=== PATIENT | female | born 1995 | race Caucasian/White ===

== ENCOUNTER 2016-07-09 00:33 | Emergency (ER) | payer OTHER ==
[2016-07-09 01:30] LABS: MEAN CORPUSCULAR HEMOGLOBIN 31.5 pg (27.0-33.0); MEAN CORPUSCULAR HGB CONC 35.5 g/dl (32.0-36.5); MEAN CORPUSCULAR VOLUME 88.7 fl (80.0-96.0); RED CELL DISTRIBUTION WIDTH 11.8 % (11.5-14.5); WHITE BLOOD COUNT 7.2 K/mm3 (4.0-10.0)
--- NOTE | 2016-07-09 01:50 | REPUSA ---
CLINICAL HISTORY: Cramps. TECHNIQUE: Transabdominal and endovaginal ultrasound of the pelvis was performed. FINDINGS: A pole is identified with crown-rump length of 0.4 cm, which corresponds to a gestational age o f 6 weeks and 4 days. A yolk sac is noted. heart motion is demonstrated, with a rate of 61 beats per minute. [place]ROE is estimated at 02/26/17. Both ovaries are identified. Right ovarian cyst is seen There is no adnexal mass or pelvic fluid col lection. IMPRESSION: Single live IUP dated 6 w 4 d.
[2016-07-09 02:02] LABS: ANION GAP 10 MEQ/L (8-16); BLOOD UREA NITROGEN 8 MG/DL (7-18); CALCIUM LEVEL 8.7 MG/DL (8.5-10.1); CARBON DIOXIDE LEVEL 25 MEQ/L (21-32); CHLORIDE LEVEL 105 MEQ/L (98-107); CREATININE FOR GFR 0.42 MG/DL (0.55-1.02); GLOMERULAR FILTRATION RATE > 60.0 (>60); GLUCOSE, FASTING 90 MG/DL (70-105); HCG, SERUM QUANTITATIVE 4344 MIU/ML; POTASSIUM SERUM 4.1 MEQ/L (3.5-5.1); SODIUM LEVEL 140 MEQ/L (136-145)
--- NOTE | 2016-07-09 02:27 | EDDOCDS ---
Physician Documentation [facility] Name: Moy Berrios Age: 21 yrs Sex: Female : 1995 Arrival Date: 07/09/2016 Time: 00:33 Bed I4 / M4 Private MD: Disposition: 07/09/16 02:20 Discharged to Home/Self Care. Impression: related conditions, unspecified, first trimester, Abdominal and pelvic pain. - Condition is Stable. - Discharge Instructions: First Trimester of , Pelvic Pain, Female. - Medication Reconciliation, Local Pharmacy Hours form. - Follow up: Private Physician; When: Call to arrange an appointment; Reason: Recheck today's complaints, Continuance of care. - Problem is new. - Symptoms are unchanged. Historical: - Allergies: Bees; Ceclor; - Home Meds: 1. none - PMHx: Anxiety Disorder; Asthma; Depression; IBS; - PSHx: Endoscopy, Upper; Tonsillectomy; stomach surgery; - Social history: Smoking status: Patient uses tobacco products, heavy tobacco smoker. No barriers to communication noted, The patient speaks fluent Mohawk, Speaks appropriately for age. - Family history: Not pertinent. - : The pt / caregiver states he / she is not on anticoagulants. Home medication list is obtained from the patient. - Exposure Risk Screening:: None identified. 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 5 in. (165.10 cm) (R); Pain 1/10; 02:23 BP 121 / 71; Pulse 71; Resp 16; Temp 98.1; Pulse Ox 100% on R/A; ld5 00:38 Body Mass Index 20.80 (56.70 kg, 165.10 cm) [facility] MDM: 00:40 UCG by Nursing ordered. mo1 00:40 UA Ordered. EDMS 00:40 Urine Culture Ordered. EDMS 00:59 Undress patient appropriately for examination ordered. mo1 00:59 Complete Blood Count Ordered. EDMS 00:59 Hcg, Serum Quantitative Ordered. EDMS 00:59 Type & Screen Ordered. EDMS 00:59 BMP Ordered. EDMS 00:59 GC & Chlamydia Amplification Ordered. EDMS 01:00 Wet Prep Ordered. EDMS 01:00 US 1st trimester Ordered. EDMS 01:10 Financial registration complete. hs2 01:36 Complete Blood Count Reviewed. mo1 01:37 UA Reviewed. mo1 01:52 US 1st trimester Reviewed. mo1 02:11 Wet Prep Reviewed. mo1 02:12 Type & Screen Reviewed. mo1 02:12 Hcg, Serum Quantitative Reviewed. mo1 02:12 BMP Reviewed. mo1 Point of Care Testing: Urine : 00:53 hCG Reading: Positive; Control Reading: Positive; ka4 Ranges: Signatures: Dispatcher [employer] Pao Hare,RN RN ld5 Anshu Rodriguez PA PA mo1 Karsten Aranda,BERTHA RN Beckie Hudson, Reg Reg hs2 MTDD
--- NOTE | 2016-07-09 02:27 | EDDOCDS ---
Nurse's Notes [facility] Name: Moy Berrios Age: 21 yrs Sex: Female : 1995 Arrival Date: 07/09/2016 Time: 00:33 Bed I4 / M4 Private MD: Diagnosis: related conditions, unspecified, first trimester;Abdominal and pelvic pain Presentation: 07/09 00:36 Presenting complaint: Patient states: Patient reports that she took two tests jmb after Cal and since then she has been having some anxiety, panic attacks. Patient reports that she just needs to know everything is ok. Risk factors: the patient reports no vaginal bleeding. Adult Sepsis Screening: The patient does not have new or worsening altered mentation. Patient's respiratory rate is less than 22. Systolic blood pressure is greater than 100. Patient has a qSOFA score of 0- Negative Sepsis Screen. Suicide/Homicide risk assessment- the patient denies having any suicidal and/or homicidal ideations and does not present with any other emotional, behavioral or mental health complaints. Status: Patient is not a guest service supervisor or dependent. Transition of care: patient was not received from another setting of care. 00:36 Acuity: BHARATHI Level 4 b 00:36 Method Of Arrival: Walkin/Carried/Asstd [facility] Triage Assessment: 00:38 General: Appears in no apparent distress, Behavior is appropriate for age, cooperative. [facility] Pain: Location: abdomen Pain currently is 1 out of 10 on a pain scale. HIV screening NA for this visit Offered previously. Neurological: Level of Consciousness is awake, alert, obeys commands, Oriented to person, place, time, Speech is normal, Facial symmetry appears normal, Facial symmetry: tongue is midline. Respiratory: Airway is patent Respiratory effort is even, unlabored, Respiratory pattern is regular, symmetrical. GI: No deficits noted. Derm: Skin is pink, warm & dry. Musculoskeletal: Range of motion intact in all extremities. 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 none - PMHx: Anxiety Disorder; Asthma; Depression; IBS; - PSHx: Endoscopy, Upper; Tonsillectomy; stomach surgery; - Social history: Smoking status: Patient uses tobacco products, heavy tobacco smoker. No barriers to communication noted, The patient speaks fluent Belizean, Speaks appropriately for age. - Family history: Not pertinent. - : The pt / caregiver states he / she is not on anticoagulants. Home medication list is obtained from the patient. - Exposure Risk Screening:: None identified. Screenin:53 Screening information is obtained from the patient. Fall risk: No risks identified. ka4 Assistance ADL's: requires no assistance with activities of daily living. Abuse/DV Screen: The patient / caregiver reports he/she is: not in a situation that causes fear, pain or injury. Nutritional screening: No deficits noted. Advance Directives: There is no active DNR order. home support is adequate. Assessment: 01:00 General: Appears in no apparent distress, Behavior is anxious, cooperative. Pain: ld5 Location: right lower quadrant and left lower quadrant Pain currently is 1 out of 10 on a pain scale. Neurological: Level of Consciousness is awake, obeys commands. Respiratory: Airway is patent Respiratory effort is even, unlabored. GI: Abdomen is non- distended Bowel sounds present X 4 quads. Abd is soft and non tender X 4 quads. : Denies vaginal bleeding. 01:47 General: Appears in no apparent distress, comfortable, Behavior is anxious, ka4 cooperative. Respiratory: Airway is patent Respiratory effort is even, unlabored, Respiratory pattern is regular, symmetrical. Derm: Skin is pink, warm & dry. 02:23 General: Appears in no apparent distress, Behavior is cooperative. Pain: Denies pain. ld5 Neurological: Level of Consciousness is awake, obeys commands. Respiratory: Airway is patent Respiratory effort is even, unlabored. Vital Signs: 00:38 BP 125 / 86; Pulse 79; Resp 18; Temp 98.8(O); Pulse Ox 98% on R/A; Weight 56.7 kg (R); [facility] Height 5 ft. 5 in. (165.10 cm) (R); Pain 07/18; 02:23 BP 121 / 71; Pulse 71; Resp 16; Temp 98.1; Pulse Ox 100% on R/A; ld5 00:38 Body Mass Index 20.80 (56.70 kg, 165.10 cm) [facility] Vitals: 00:38 Log In Time: July 09, 2016 at 00:38. [facility] ED Course: 00:34 Patient visited by Altagracia Pollock. gjb 00:34 Patient moved to Waiting gjb 00:37 Triage Initiated jmb 00:39 Anshu Rodriguez PA is PHCP. mo1 00:39 Zaki Licona DO is Attending Physician. mo1 00:41 Patient moved to I4 / M4 jmb 00:53 Patient visited by Marija Medrano LPN. ka4 00:53 The patient / caregiver is instructed regarding the plan of care and ED course. ka4 00:53 Urine Culture Sent. ka4 00:53 UA Sent. ka4 01:00 Patient visited by Anshu Rodriguez PA. mo1 01:46 Wet Prep Sent. ka4 01:46 GC & Chlamydia Amplification Sent. ka4 01:48 Patient visited by Marija Medrano LPN. ka4 01:48 Assist provider with pelvic exam: Set up pelvic tray. Specimens sent to lab. Performed ka4 by Anshu ZELAYA Patient tolerated well. 01:50 US 1st trimester Returned. EDMS 02:23 No IV's were initiated during this patient's visit. ld5 02:25 Patient visited by Pao Deras RN. ld5 Point of Care Testing: Urine : 00:53 hCG Reading: Positive; Control Reading: Positive; ka4 Ranges: Order Results: Lab Order: UA; SPEC'M 07/09/16 00:51 Test: APPEARANCE, URINE; Value: CLEAR; Range: CLEAR; Status: F Test: COLOR, URINE; Value: YELLOW; Range: YELLOW; Status: F Test: PH,URINE; Value: 6.0; Range: 5.0-9.0; Units: UNITS; Status: F Test: SPECIFIC GRAVITY URINE AUTO; Value: 1.020; Range: 1.002-1.035; Status: F Test: PROTEIN, URINE AUTO; Value: NEGATIVE; Range: NEGATIVE; Units: mg/dL; Status: F Test: GLUCOSE, URINE (UA) AUTO; Value: NEGATIVE; Range: NEGATIVE; Units: mg/dL; Status: F Test: KETONE, URINE AUTO; Value: 1+; Range: NEGATIVE; Abnormal: Above high normal; Units: mg/dL; Status: F Test: UROBILINOGEN, URINE AUTO; Value: 0.2; Range: 0.0-2.0; Units: mg/dL; Status: F Test: BILIRUBIN, URINE AUTO; Value: NEGATIVE; Range: NEGATIVE; Status: F Test: NITRITE, URINE AUTO; Value: NEGATIVE; Range: NEGATIVE; Status: F Test: LEUKOCYTE ESTERASE, URINE AUTO; Value: NEGATIVE; Range: NEGATIVE; Status: F Test: BLOOD, URINE BLOOD; Value: NEGATIVE; Range: NEGATIVE; Status: F Test: WBC, URINE AUTO; Value: 1; Range: 0-3; Units: /HPF; Status: F Test: RBC, URINE AUTO; Value: 1; Range: 0-3; Units: /HPF; Status: F Test: BACTERIA, URINE AUTO; Value: 1+; Range: NEGATIVE; Abnormal: Above high normal; Status: F Test: SQUAMOUS EPITHELIAL CELL UR AU; Value: 1; Range: 0-6; Units: /HPF; Status: F Test: MUCUS, URINE; Value: SMALL; Range: NEGATIVE; Status: F Test: HYALINE CAST, URINE AUTO; Value: 0; Range: 0-1; Units: /LPF; Status: F Lab Order: Complete Blood Count; SPEC'M 07/09/16 01:12 Test: WHITE BLOOD COUNT; Value: 7.2; Range: 4.0-10.0; Units: K/mm3; Status: F Test: RED BLOOD COUNT; Value: 4.15; Range: 4.00-5.40; Units: M/mm3; Status: F Test: HEMOGLOBIN; Value: 13.1; Range: 12.0-16.0; Units: g/dl; Status: F Test: HEMATOCRIT; Value: 36.8; Range: 36.0-47.0; Units: %; Status: F Test: MEAN CORPUSCULAR VOLUME; Value: 88.7; Range: 80.0-96.0; Units: fl; Status: F Test: MEAN CORPUSCULAR HEMOGLOBIN; Value: 31.5; Range: 27.0-33.0; Units: pg; Status: F Test: MEAN CORPUSCULAR HGB CONC; Value: 35.5; Range: 32.0-36.5; Units: g/dl; Status: F Test: RED CELL DISTRIBUTION WIDTH; Value: 11.8; Range: 11.5-14.5; Units: %; Status: F Test: PLATELET COUNT, AUTOMATED; Value: 207; Range: 150-450; Units: k/mm3; Status: F Lab Order: Hcg, Serum Quantitative; SPEC'07/09/16 01:12 Test: HCG, SERUM QUANTITATIVE; Value: 4344; Units: MIU/ML; Status: F Test Note: ; GESTATIONAL AGE APPROXIMATE HCG RANGE (MIU/ML) 0.2-1 WEEK 5-50 1-2 WEEKS 50-500 2-3 WEEKS 100-5,000 3-4 WEEKS 500-10,000 4-5 WEEKS 1,000-50,000 5-6 WEEKS 10,000-100,000 6-8 WEEKS 15,000-200,000 2-3 MONTHS 10,000-100,000 NON FEMALES LESS THAN 3.0 Patient samples may contain human heterophilic antibodies that could react with immunoassays to give falsely elevated or depressed results. This assay has been designed to minimize interference from heterophilic antibodies. Elevated hCG levels have also been associated with trophoblastic disease and nontrophoblastic neoplasms. The possibility of having these diseases should be considered before a diagnosis of is made. This test is not intended for use as a surrogate marker for aiding in the diagnosis or monitoring the treatment of cancer patients. [employer] methodology. Lab Order: Type & Screen; 07/09/16 01:12 Test: BLOOD TYPE; Value: A POS; Status: F Test: AB SCREEN (INDIRECT CHAR)GEL; Value: NEGATIVE; Status: F Lab Order: BMP; [facility] 07/09/16 01:12 Test: GLUCOSE, FASTING; Value: 90; Range: 70-105; Units: MG/DL; Status: F Test: BLOOD UREA NITROGEN; Value: 8; Range: 7-18; Units: MG/DL; Status: F Test: CREATININE FOR GFR; Value: 0.42; Range: 0.55-1.02; Abnormal: Below low normal; Units: MG/DL; Status: F Test: GLOMERULAR FILTRATION RATE; Value: > 60.0; Range: >60; Status: F Test: SODIUM LEVEL; Value: 140; Range: 136-145; Units: MEQ/L; Status: F Test: POTASSIUM SERUM; Value: 4.1; Range: 3.5-5.1; Units: MEQ/L; Status: F Test: CHLORIDE LEVEL; Value: 105; Range: 98-107; Units: MEQ/L; Status: F Test: CARBON DIOXIDE LEVEL; Value: 25; Range: 21-32; Units: MEQ/L; Status: F Test: ANION GAP; Value: 10; Range: 8-16; Units: MEQ/L; Status: F Test: CALCIUM LEVEL; Value: 8.7; Range: 8.5-10.1; Units: MG/DL; Status: F Test Note: ; Units are mL/min/1.73 m2 Chronic Kidney Disease Staging per NKF: Stage I & II GFR >=60 Normal to Mildly Decreased Stage III GFR 30-59 Moderately Decreased Stage IV GFR 15-29 Severely Decreased Stage V GFR <15 Very Little GFR Left ESRD GFR <15 on LOCKSTITCH CUP SETTER Lab Order: Wet Prep; SPEC'M 07/09/16 01:12 Test: WET PREP; Value: WET PREP RESULT; Status: F Test: WET PREP; Value: MANY EPITHELIAL CELLS PRESENT; Status: F Test: WET PREP; Value: MANY LONG RODS PRESENT; Status: F Test: WET PREP; Value: MODERATE WBC; Status: F Radiology Order: US 1st trimester Test: US 1st trimester REASON FOR EXAMINATION: 5wks preg, pelvic pain; ; CLINICAL HISTORY: Cramps.; TECHNIQUE: Transabdominal and endovaginal ultrasound of the pelvis was performed.; FINDINGS:; A pole is identified with crown-rump length of 0.4 cm, which corresponds to a gestational age o; f 6 weeks and 4 days. A yolk sac is noted.; heart motion is demonstrated, with a rate of 61 beats per minute.; [place] is estimated at 02/26/17.; Both ovaries are identified. Right ovarian cyst is seen There is no adnexal mass or pelvic fluid col; lection.; IMPRESSION:; Single live IUP dated 6 w 4 d.; ; Outcome: 02:20 Discharge ordered by Provider. mo1 02:23 Discharge Assessment: Patient awake, alert and oriented x 3. No cognitive and/or ld5 functional deficits noted. Patient verbalized understanding of disposition instructions. patient administered narcotics - no. The following High Risk Discharge criteria are identified: None. Discharged to home ambulatory, with significant other. Condition: stable. Discharge instructions given to patient, significant other, Instructed on discharge instructions, follow up and referral plans. Demonstrated understanding of instructions, Pt was receptive of discharge instructions/ teaching. Ultrasound Study completed. Property :Personal belongings accompany Pt. 02:25 Patient left the ED. ld5 Signatures: Dispatcher [employer] Pao Hare RN RN ld5 Anshu Rodriguez PA PA mo1 Becker, Joshua, RN RN Marija Finley LPN LPN ka4 Altagracia Pollock MTDPerla
--- NOTE | 2016-07-11 03:26 | EDDOCDS ---
Physician Documentation [facility] Name: Moy Berrios Age: 21 yrs Sex: Female : 1995 Arrival Date: 07/09/2016 Time: 00:33 Bed I4 / M4 Private MD: Disposition: 07/09/16 02:20 Discharged to Home/Self Care. Impression: related conditions, unspecified, first trimester, Abdominal and pelvic pain. - Condition is Stable. - Discharge Instructions: First Trimester of , Pelvic Pain, Female. - Medication Reconciliation, Local Pharmacy Hours form. - Follow up: Private Physician; When: Call to arrange an appointment; Reason: Recheck today's complaints, Continuance of care. - Problem is new. - Symptoms are unchanged. Historical: - Allergies: Bees; Ceclor; - Home Meds: 1. none - PMHx: Anxiety Disorder; Asthma; Depression; IBS; - PSHx: Endoscopy, Upper; Tonsillectomy; stomach surgery; - Social history: Smoking status: Patient uses tobacco products, heavy tobacco smoker. No barriers to communication noted, The patient speaks fluent Italian, Speaks appropriately for age. - Family history: Not pertinent. - : The pt / caregiver states he / she is not on anticoagulants. Home medication list is obtained from the patient. - Exposure Risk Screening:: None identified. 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 5 in. (165.10 cm) (R); Pain 1/10; 02:23 BP 121 / 71; Pulse 71; Resp 16; Temp 98.1; Pulse Ox 100% on R/A; ld5 00:38 Body Mass Index 20.80 (56.70 kg, 165.10 cm) [facility] MDM: 00:40 UCG by Nursing ordered. mo1 00:40 UA Ordered. EDMS 00:40 Urine Culture Ordered. EDMS 00:59 Undress patient appropriately for examination ordered. mo1 00:59 Complete Blood Count Ordered. EDMS 00:59 Hcg, Serum Quantitative Ordered. EDMS 00:59 Type & Screen Ordered. EDMS 00:59 BMP Ordered. EDMS 00:59 GC & Chlamydia Amplification Ordered. EDMS 01:00 Wet Prep Ordered. EDMS 01:00 US 1st trimester Ordered. EDMS 01:10 Financial registration complete. hs2 01:36 Complete Blood Count Reviewed. mo1 01:37 UA Reviewed. mo1 01:52 US 1st trimester Reviewed. mo1 02:11 Wet Prep Reviewed. mo1 02:12 Type & Screen Reviewed. mo1 02:12 Hcg, Serum Quantitative Reviewed. mo1 02:12 BMP Reviewed. mo1 02:32 [facility] Payment Agreement was scanned into [employer] and attached to record. hs2 08:52 T-Sheet-- Draft Copy was scanned into [employer] and attached to record. [facility] Point of Care Testing: Urine : 00:53 hCG Reading: Positive; Control Reading: Positive; ka4 Ranges: Signatures: Dispatcher [employer] Pao Hare RN RN ld5 Anshu Rodriguez PA PA mo1 Karsten Aranda RN RN jmb Stanton, Hillary, Reg Reg hs2 Emani Douglas [facility] The chart was reviewed and I authenticate all verbal orders and agree with the evaluation and treatment provided.Attachments: 02:32 [facility] Payment Agreement hs2 08:52 T-Sheet-- Draft Copy [facility] Chart Complete MTDD
--- NOTE | 2016-07-11 03:26 | EDDOCDS ---
Nurse's Notes [facility] Name: Moy Berrios Age: 21 yrs Sex: Female : 1995 Arrival Date: 07/09/2016 Time: 00:33 Bed I4 / M4 Private MD: Diagnosis: related conditions, unspecified, first trimester;Abdominal and pelvic pain Presentation: 07/09 00:36 Presenting complaint: Patient states: Patient reports that she took two tests jmb after Cal and since then she has been having some anxiety, panic attacks. Patient reports that she just needs to know everything is ok. Risk factors: the patient reports no vaginal bleeding. Adult Sepsis Screening: The patient does not have new or worsening altered mentation. Patient's respiratory rate is less than 22. Systolic blood pressure is greater than 100. Patient has a qSOFA score of 0- Negative Sepsis Screen. Suicide/Homicide risk assessment- the patient denies having any suicidal and/or homicidal ideations and does not present with any other emotional, behavioral or mental health complaints. Status: Patient is not a customer service representative teacher or dependent. Transition of care: patient was not received from another setting of care. 00:36 Acuity: BHARATHI Level 4 b 00:36 Method Of Arrival: Walkin/Carried/Asstd [facility] Triage Assessment: 00:38 General: Appears in no apparent distress, Behavior is appropriate for age, cooperative. [facility] Pain: Location: abdomen Pain currently is 1 out of 10 on a pain scale. HIV screening NA for this visit Offered previously. Neurological: Level of Consciousness is awake, alert, obeys commands, Oriented to person, place, time, Speech is normal, Facial symmetry appears normal, Facial symmetry: tongue is midline. Respiratory: Airway is patent Respiratory effort is even, unlabored, Respiratory pattern is regular, symmetrical. GI: No deficits noted. Derm: Skin is pink, warm & dry. Musculoskeletal: Range of motion intact in all extremities. 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 none - PMHx: Anxiety Disorder; Asthma; Depression; IBS; - PSHx: Endoscopy, Upper; Tonsillectomy; stomach surgery; - Social history: Smoking status: Patient uses tobacco products, heavy tobacco smoker. No barriers to communication noted, The patient speaks fluent Kittitian, Speaks appropriately for age. - Family history: Not pertinent. - : The pt / caregiver states he / she is not on anticoagulants. Home medication list is obtained from the patient. - Exposure Risk Screening:: None identified. Screenin:53 Screening information is obtained from the patient. Fall risk: No risks identified. ka4 Assistance ADL's: requires no assistance with activities of daily living. Abuse/DV Screen: The patient / caregiver reports he/she is: not in a situation that causes fear, pain or injury. Nutritional screening: No deficits noted. Advance Directives: There is no active DNR order. home support is adequate. Assessment: 01:00 General: Appears in no apparent distress, Behavior is anxious, cooperative. Pain: ld5 Location: right lower quadrant and left lower quadrant Pain currently is 1 out of 10 on a pain scale. Neurological: Level of Consciousness is awake, obeys commands. Respiratory: Airway is patent Respiratory effort is even, unlabored. GI: Abdomen is non- distended Bowel sounds present X 4 quads. Abd is soft and non tender X 4 quads. : Denies vaginal bleeding. 01:47 General: Appears in no apparent distress, comfortable, Behavior is anxious, ka4 cooperative. Respiratory: Airway is patent Respiratory effort is even, unlabored, Respiratory pattern is regular, symmetrical. Derm: Skin is pink, warm & dry. 02:23 General: Appears in no apparent distress, Behavior is cooperative. Pain: Denies pain. ld5 Neurological: Level of Consciousness is awake, obeys commands. Respiratory: Airway is patent Respiratory effort is even, unlabored. Vital Signs: 00:38 BP 125 / 86; Pulse 79; Resp 18; Temp 98.8(O); Pulse Ox 98% on R/A; Weight 56.7 kg (R); [facility] Height 5 ft. 5 in. (165.10 cm) (R); Pain 07/18; 02:23 BP 121 / 71; Pulse 71; Resp 16; Temp 98.1; Pulse Ox 100% on R/A; ld5 00:38 Body Mass Index 20.80 (56.70 kg, 165.10 cm) [facility] Vitals: 00:38 Log In Time: July 09, 2016 at 00:38. [facility] ED Course: 00:34 Patient visited by Altagracia Pollock. gjb 00:34 Patient moved to Waiting gjb 00:37 Triage Initiated jmb 00:39 Anshu Rodriguez PA is PHCP. mo1 00:39 Zaki Licona DO is Attending Physician. mo1 00:41 Patient moved to I4 / M4 jmb 00:53 Patient visited by Marija Medrano LPN. ka4 00:53 The patient / caregiver is instructed regarding the plan of care and ED course. ka4 00:53 Urine Culture Sent. ka4 00:53 UA Sent. ka4 01:00 Patient visited by Anshu Rodriguez PA. mo1 01:46 Wet Prep Sent. ka4 01:46 GC & Chlamydia Amplification Sent. ka4 01:48 Patient visited by Marija Medrano LPN. ka4 01:48 Assist provider with pelvic exam: Set up pelvic tray. Specimens sent to lab. Performed ka4 by Anshu ZELAYA Patient tolerated well. 01:50 US 1st trimester Returned. EDMS 02:23 No IV's were initiated during this patient's visit. ld5 02:25 Patient visited by Pao Deras RN. ld5 02:32 [facility] Payment Agreement was scanned into [employer] and attached to record. hs2 02:36 Patient name changed from Moy\S\\S\Angilello\S\ to Moy\S\ \S\Angilello. EDMS 08:52 T-Sheet-- Draft Copy was scanned into [employer] and attached to record. [facility] Point of Care Testing: Urine : 00:53 hCG Reading: Positive; Control Reading: Positive; ka4 Ranges: Order Results: Lab Order: UA; SPEC'M 07/09/16 00:51 Test: APPEARANCE, URINE; Value: CLEAR; Range: CLEAR; Status: F Test: COLOR, URINE; Value: YELLOW; Range: YELLOW; Status: F Test: PH,URINE; Value: 6.0; Range: 5.0-9.0; Units: UNITS; Status: F Test: SPECIFIC GRAVITY URINE AUTO; Value: 1.020; Range: 1.002-1.035; Status: F Test: PROTEIN, URINE AUTO; Value: NEGATIVE; Range: NEGATIVE; Units: mg/dL; Status: F Test: GLUCOSE, URINE (UA) AUTO; Value: NEGATIVE; Range: NEGATIVE; Units: mg/dL; Status: F Test: KETONE, URINE AUTO; Value: 1+; Range: NEGATIVE; Abnormal: Above high normal; Units: mg/dL; Status: F Test: UROBILINOGEN, URINE AUTO; Value: 0.2; Range: 0.0-2.0; Units: mg/dL; Status: F Test: BILIRUBIN, URINE AUTO; Value: NEGATIVE; Range: NEGATIVE; Status: F Test: NITRITE, URINE AUTO; Value: NEGATIVE; Range: NEGATIVE; Status: F Test: LEUKOCYTE ESTERASE, URINE AUTO; Value: NEGATIVE; Range: NEGATIVE; Status: F Test: BLOOD, URINE BLOOD; Value: NEGATIVE; Range: NEGATIVE; Status: F Test: WBC, URINE AUTO; Value: 1; Range: 0-3; Units: /HPF; Status: F Test: RBC, URINE AUTO; Value: 1; Range: 0-3; Units: /HPF; Status: F Test: BACTERIA, URINE AUTO; Value: 1+; Range: NEGATIVE; Abnormal: Above high normal; Status: F Test: SQUAMOUS EPITHELIAL CELL UR AU; Value: 1; Range: 0-6; Units: /HPF; Status: F Test: MUCUS, URINE; Value: SMALL; Range: NEGATIVE; Status: F Test: HYALINE CAST, URINE AUTO; Value: 0; Range: 0-1; Units: /LPF; Status: F Lab Order: Urine Culture; SPEC'M 07/09/16 00:51 Test: URINE CULTURE; Value: URINE CULTURE RESULT NO GROWTH; Status: F Lab Order: Complete Blood Count; SPEC'M 07/09/16 01:12 Test: WHITE BLOOD COUNT; Value: 7.2; Range: 4.0-10.0; Units: K/mm3; Status: F Test: RED BLOOD COUNT; Value: 4.15; Range: 4.00-5.40; Units: M/mm3; Status: F Test: HEMOGLOBIN; Value: 13.1; Range: 12.0-16.0; Units: g/dl; Status: F Test: HEMATOCRIT; Value: 36.8; Range: 36.0-47.0; Units: %; Status: F Test: MEAN CORPUSCULAR VOLUME; Value: 88.7; Range: 80.0-96.0; Units: fl; Status: F Test: MEAN CORPUSCULAR HEMOGLOBIN; Value: 31.5; Range: 27.0-33.0; Units: pg; Status: F Test: MEAN CORPUSCULAR HGB CONC; Value: 35.5; Range: 32.0-36.5; Units: g/dl; Status: F Test: RED CELL DISTRIBUTION WIDTH; Value: 11.8; Range: 11.5-14.5; Units: %; Status: F Test: PLATELET COUNT, AUTOMATED; Value: 207; Range: 150-450; Units: k/mm3; Status: F Lab Order: Hcg, Serum Quantitative; SPEC'M 07/09/16 01:12 Test: HCG, SERUM QUANTITATIVE; Value: 4344; Units: MIU/ML; Status: F Test Note: ; GESTATIONAL AGE APPROXIMATE HCG RANGE (MIU/ML) 0.2-1 WEEK 5-50 1-2 WEEKS 50-500 2-3 WEEKS 100-5,000 3-4 WEEKS 500-10,000 4-5 WEEKS 1,000-50,000 5-6 WEEKS 10,000-100,000 6-8 WEEKS 15,000-200,000 2-3 MONTHS 10,000-100,000 NON FEMALES LESS THAN 3.0 Patient samples may contain human heterophilic antibodies that could react with immunoassays to give falsely elevated or depressed results. This assay has been designed to minimize interference from heterophilic antibodies. Elevated hCG levels have also been associated with trophoblastic disease and nontrophoblastic neoplasms. The possibility of having these diseases should be considered before a diagnosis of is made. This test is not intended for use as a surrogate marker for aiding in the diagnosis or monitoring the treatment of cancer patients. Siemens Pixability methodology. Lab Order: Type & Screen; SPEC'M 07/09/16 01:12 Test: BLOOD TYPE; Value: A POS; Status: F Test: AB SCREEN (INDIRECT CHAR)GEL; Value: NEGATIVE; Status: F Lab Order: BMP; SPEC'M 07/09/16 01:12 Test: GLUCOSE, FASTING; Value: 90; Range: 70-105; Units: MG/DL; Status: F Test: BLOOD UREA NITROGEN; Value: 8; Range: 7-18; Units: MG/DL; Status: F Test: CREATININE FOR GFR; Value: 0.42; Range: 0.55-1.02; Abnormal: Below low normal; Units: MG/DL; Status: F Test: GLOMERULAR FILTRATION RATE; Value: > 60.0; Range: >60; Status: F Test: SODIUM LEVEL; Value: 140; Range: 136-145; Units: MEQ/L; Status: F Test: POTASSIUM SERUM; Value: 4.1; Range: 3.5-5.1; Units: MEQ/L; Status: F Test: CHLORIDE LEVEL; Value: 105; Range: 98-107; Units: MEQ/L; Status: F Test: CARBON DIOXIDE LEVEL; Value: 25; Range: 21-32; Units: MEQ/L; Status: F Test: ANION GAP; Value: 10; Range: 8-16; Units: MEQ/L; Status: F Test: CALCIUM LEVEL; Value: 8.7; Range: 8.5-10.1; Units: MG/DL; Status: F Test Note: ; Units are mL/min/1.73 m2 Chronic Kidney Disease Staging per NKF: Stage I & II GFR >=60 Normal to Mildly Decreased Stage III GFR 30-59 Moderately Decreased Stage IV GFR 15-29 Severely Decreased Stage V GFR <15 Very Little GFR Left ESRD GFR <15 on WINDING LATHE OPERATOR Lab Order: GC & Chlamydia Amplification; SPEC'M 07/09/16 01:12 Test: CHLAMYDIA DNA AMPLIFICATION; Value: NEGATIVE; Range: NEGATIVE; Status: F Test: GC DNA AMPLIFICATION; Value: NEGATIVE; Range: NEGATIVE; Status: F Lab Order: Wet Prep; SPEC'M 07/09/16 01:12 Test: WET PREP; Value: WET PREP RESULT; Status: F Test: WET PREP; Value: MANY EPITHELIAL CELLS PRESENT; Status: F Test: WET PREP; Value: MANY LONG RODS PRESENT; Status: F Test: WET PREP; Value: MODERATE WBC; Status: F Radiology Order: US 1st trimester Test: US 1st trimester REASON FOR EXAMINATION: 5wks preg, pelvic pain; ; CLINICAL HISTORY: Cramps.; TECHNIQUE: Transabdominal and endovaginal ultrasound of the pelvis was performed.; FINDINGS:; A pole is identified with crown-rump length of 0.4 cm, which corresponds to a gestational age o; f 6 weeks and 4 days. A yolk sac is noted.; heart motion is demonstrated, with a rate of 61 beats per minute.; [place] is estimated at 02/26/17.; Both ovaries are identified. Right ovarian cyst is seen There is no adnexal mass or pelvic fluid col; lection.; IMPRESSION:; Single live IUP dated 6 w 4 d.; ; Outcome: 02:20 Discharge ordered by Provider. mo1 02:23 Discharge Assessment: Patient awake, alert and oriented x 3. No cognitive and/or ld5 functional deficits noted. Patient verbalized understanding of disposition instructions. patient administered narcotics - no. The following High Risk Discharge criteria are identified: None. Discharged to home ambulatory, with significant other. Condition: stable. Discharge instructions given to patient, significant other, Instructed on discharge instructions, follow up and referral plans. Demonstrated understanding of instructions, Pt was receptive of discharge instructions/ teaching. Ultrasound Study completed. Property :Personal belongings accompany Pt. 02:25 Patient left the ED. ld5 Signatures: Dispatcher [employer] EDPao Nunez,RN RN ld5 Anshu Rodriguez PA PA mo1 Karsten ArandaRN RN Marija Finley LPN LPN ka4 Beck, Gabriela gjb Stanton, Hillary, Reg Reg hs2 Misael Emanicorrie briggs Chart Complete MTDD
--- NOTE | 2016-07-11 03:26 | EDDOCDS ---
Physician Documentation [facility] Name: Moy Berrios Age: 21 yrs Sex: Female : 1995 Arrival Date: 07/09/2016 Time: 00:33 Bed I4 / M4 Private MD: Disposition: 07/09/16 02:20 Discharged to Home/Self Care. Impression: related conditions, unspecified, first trimester, Abdominal and pelvic pain. - Condition is Stable. - Discharge Instructions: First Trimester of , Pelvic Pain, Female. - Medication Reconciliation, Local Pharmacy Hours form. - Follow up: Private Physician; When: Call to arrange an appointment; Reason: Recheck today's complaints, Continuance of care. - Problem is new. - Symptoms are unchanged. Historical: - Allergies: Bees; Ceclor; - Home Meds: 1. none - PMHx: Anxiety Disorder; Asthma; Depression; IBS; - PSHx: Endoscopy, Upper; Tonsillectomy; stomach surgery; - Social history: Smoking status: Patient uses tobacco products, heavy tobacco smoker. No barriers to communication noted, The patient speaks fluent Urdu, Speaks appropriately for age. - Family history: Not pertinent. - : The pt / caregiver states he / she is not on anticoagulants. Home medication list is obtained from the patient. - Exposure Risk Screening:: None identified. 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 5 in. (165.10 cm) (R); Pain 1/10; 02:23 BP 121 / 71; Pulse 71; Resp 16; Temp 98.1; Pulse Ox 100% on R/A; ld5 00:38 Body Mass Index 20.80 (56.70 kg, 165.10 cm) [facility] MDM: 00:40 UCG by Nursing ordered. mo1 00:40 UA Ordered. EDMS 00:40 Urine Culture Ordered. EDMS 00:59 Undress patient appropriately for examination ordered. mo1 00:59 Complete Blood Count Ordered. EDMS 00:59 Hcg, Serum Quantitative Ordered. EDMS 00:59 Type & Screen Ordered. EDMS 00:59 BMP Ordered. EDMS 00:59 GC & Chlamydia Amplification Ordered. EDMS 01:00 Wet Prep Ordered. EDMS 01:00 US 1st trimester Ordered. EDMS 01:10 Financial registration complete. hs2 01:36 Complete Blood Count Reviewed. mo1 01:37 UA Reviewed. mo1 01:52 US 1st trimester Reviewed. mo1 02:11 Wet Prep Reviewed. mo1 02:12 Type & Screen Reviewed. mo1 02:12 Hcg, Serum Quantitative Reviewed. mo1 02:12 BMP Reviewed. mo1 02:32 [facility] [place] Agreement was scanned into [email or web address] and attached to record. hs2 08:52 T-Sheet-- Draft Copy was scanned into [email or web address] and attached to record. [facility] Point of Care Testing: Urine : 00:53 hCG Reading: Positive; Control Reading: Positive; ka4 Ranges: Signatures: Dispatcher [employer] Pao Hare RN RN ld5 Anshu Rodriguez PA PA mo1 Karsten Aranda RN RN jmb Stanton, Hillary, Reg Reg hs2 Emani Douglas [facility] The chart was reviewed and I authenticate all verbal orders and agree with the evaluation and treatment provided.Attachments: 02:32 [facility] Payment Agreement hs2 08:52 T-Sheet-- Draft Copy [facility] Chart Complete MTDD
--- NOTE | 2016-07-15 12:46 | EDDOCDS ---
Physician Documentation [facility] Name: Moy Berrios Age: 21 yrs Sex: Female : 1995 Arrival Date: 07/09/2016 Time: 00:33 Bed I4 / M4 Private MD: Disposition: 07/09/16 02:20 Discharged to Home/Self Care. Impression: related conditions, unspecified, first trimester, Abdominal and pelvic pain. - Condition is Stable. - Discharge Instructions: First Trimester of , Pelvic Pain, Female. - Medication Reconciliation, Local Pharmacy Hours form. - Follow up: Private Physician; When: Call to arrange an appointment; Reason: Recheck today's complaints, Continuance of care. - Problem is new. - Symptoms are unchanged. Historical: - Allergies: Bees; Ceclor; - Home Meds: 1. none - PMHx: Anxiety Disorder; Asthma; Depression; IBS; - PSHx: Endoscopy, Upper; Tonsillectomy; stomach surgery; - Social history: Smoking status: Patient uses tobacco products, heavy tobacco smoker. No barriers to communication noted, The patient speaks fluent Irish, Speaks appropriately for age. - Family history: Not pertinent. - : The pt / caregiver states he / she is not on anticoagulants. Home medication list is obtained from the patient. - Exposure Risk Screening:: None identified. 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 Vital Signs: 00:38 BP 125 / 86; Pulse 79; Resp 18; Temp 98.8(O); Pulse Ox 98% on R/A; Weight 56.7 kg / 125 jmb lbs (R); Height 5 ft. 5 in. (165.10 cm) (R); Pain 1/10; 02:23 BP 121 / 71; Pulse 71; Resp 16; Temp 98.1; Pulse Ox 100% on R/A; ld5 00:38 Body Mass Index 20.80 (56.70 kg, 165.10 cm) [facility] MDM: 00:40 UCG by Nursing ordered. mo1 00:40 UA Ordered. EDMS 00:40 Urine Culture Ordered. EDMS 00:59 Undress patient appropriately for examination ordered. mo1 00:59 Complete Blood Count Ordered. EDMS 00:59 Hcg, Serum Quantitative Ordered. EDMS 00:59 Type & Screen Ordered. EDMS 00:59 BMP Ordered. EDMS 00:59 GC & Chlamydia Amplification Ordered. EDMS 01:00 Wet Prep Ordered. EDMS 01:00 US 1st trimester Ordered. EDMS 01:10 Financial registration complete. hs2 01:36 Complete Blood Count Reviewed. mo1 01:37 UA Reviewed. mo1 01:52 US 1st trimester Reviewed. mo1 02:11 Wet Prep Reviewed. mo1 02:12 Type & Screen Reviewed. mo1 02:12 Hcg, Serum Quantitative Reviewed. mo1 02:12 BMP Reviewed. mo1 02:32 [facility] Payment Agreement was scanned into [employer] and attached to record. hs2 08:52 T-Sheet-- Draft Copy was scanned into [employer] and attached to record. [facility] Point of Care Testing: Urine : 00:53 hCG Reading: Positive; Control Reading: Positive; ka4 Ranges: Signatures: Dispatcher [employer] Pao Hare RN RN ld5 Anshu Rodriguez PA PA mo1 Karsten Aranda RN RN Beckie Hudson, Reg Reg hs2 Emani Douglas [facility] The chart was reviewed and I authenticate all verbal orders and agree with the evaluation and treatment provided.Attachments: 02:32 [facility] Payment Agreement hs2 Chart Complete MTDD
--- NOTE | 2016-07-15 12:46 | EDDOCDS ---
Physician Documentation [facility] Name: Moy Berrios Age: 21 yrs Sex: Female : 1995 Arrival Date: 07/09/2016 Time: 00:33 Bed I4 / M4 Private MD: Disposition: 07/09/16 02:20 Discharged to Home/Self Care. Impression: related conditions, unspecified, first trimester, Abdominal and pelvic pain. - Condition is Stable. - Discharge Instructions: First Trimester of , Pelvic Pain, Female. - Medication Reconciliation, Local Pharmacy Hours form. - Follow up: Private Physician; When: Call to arrange an appointment; Reason: Recheck today's complaints, Continuance of care. - Problem is new. - Symptoms are unchanged. Historical: - Allergies: Bees; Ceclor; - Home Meds: 1. none - PMHx: Anxiety Disorder; Asthma; Depression; IBS; - PSHx: Endoscopy, Upper; Tonsillectomy; stomach surgery; - Social history: Smoking status: Patient uses tobacco products, heavy tobacco smoker. No barriers to communication noted, The patient speaks fluent Syriac, Speaks appropriately for age. - Family history: Not pertinent. - : The pt / caregiver states he / she is not on anticoagulants. Home medication list is obtained from the patient. - Exposure Risk Screening:: None identified. 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 5 in. (165.10 cm) (R); Pain 1/10; 02:23 BP 121 / 71; Pulse 71; Resp 16; Temp 98.1; Pulse Ox 100% on R/A; ld5 00:38 Body Mass Index 20.80 (56.70 kg, 165.10 cm) [facility] MDM: 00:40 UCG by Nursing ordered. mo1 00:40 UA Ordered. EDMS 00:40 Urine Culture Ordered. EDMS 00:59 Undress patient appropriately for examination ordered. mo1 00:59 Complete Blood Count Ordered. EDMS 00:59 Hcg, Serum Quantitative Ordered. EDMS 00:59 Type & Screen Ordered. EDMS 00:59 BMP Ordered. EDMS 00:59 GC & Chlamydia Amplification Ordered. EDMS 01:00 Wet Prep Ordered. EDMS 01:00 US 1st trimester Ordered. EDMS 01:10 Financial registration complete. hs2 01:36 Complete Blood Count Reviewed. mo1 01:37 UA Reviewed. mo1 01:52 US 1st trimester Reviewed. mo1 02:11 Wet Prep Reviewed. mo1 02:12 Type & Screen Reviewed. mo1 02:12 Hcg, Serum Quantitative Reviewed. mo1 02:12 BMP Reviewed. mo1 02:32 [facility] Payment Agreement was scanned into [employer] and attached to record. hs2 08:52 T-Sheet-- Draft Copy was scanned into [employer] and attached to record. [facility] Point of Care Testing: Urine : 00:53 hCG Reading: Positive; Control Reading: Positive; ka4 Ranges: Signatures: Dispatcher [employer] Pao Hare RN RN ld5 Anshu Rodriguez PA PA mo1 Karsten Aranda RN RN Beckie Hudson, Reg Reg hs2 Emani [address] [facility] The chart was reviewed and I authenticate all verbal orders and agree with the evaluation and treatment provided.Attachments: 02:32 [facility] Payment Agreement hs2 Chart Complete MTDD
--- NOTE | 2016-07-15 12:47 | EDDOCDS ---
Nurse's Notes [facility] Name: Moy Berrios Age: 21 yrs Sex: Female : 1995 Arrival Date: 07/09/2016 Time: 00:33 Bed I4 / M4 Private MD: Diagnosis: related conditions, unspecified, first trimester;Abdominal and pelvic pain Presentation: 07/09 00:36 Presenting complaint: Patient states: Patient reports that she took two tests jmb after Cal and since then she has been having some anxiety, panic attacks. Patient reports that she just needs to know everything is ok. Risk factors: the patient reports no vaginal bleeding. Adult Sepsis Screening: The patient does not have new or worsening altered mentation. Patient's respiratory rate is less than 22. Systolic blood pressure is greater than 100. Patient has a qSOFA score of 0- Negative Sepsis Screen. Suicide/Homicide risk assessment- the patient denies having any suicidal and/or homicidal ideations and does not present with any other emotional, behavioral or mental health complaints. Status: Patient is not a atm servicer or dependent. Transition of care: patient was not received from another setting of care. 00:36 Acuity: BHARATHI Level 4 b 00:36 Method Of Arrival: Walkin/Carried/Asstd [facility] Triage Assessment: 00:38 General: Appears in no apparent distress, Behavior is appropriate for age, cooperative. [facility] Pain: Location: abdomen Pain currently is 1 out of 10 on a pain scale. HIV screening NA for this visit Offered previously. Neurological: Level of Consciousness is awake, alert, obeys commands, Oriented to person, place, time, Speech is normal, Facial symmetry appears normal, Facial symmetry: tongue is midline. Respiratory: Airway is patent Respiratory effort is even, unlabored, Respiratory pattern is regular, symmetrical. GI: No deficits noted. Derm: Skin is pink, warm & dry. Musculoskeletal: Range of motion intact in all extremities. 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 none - PMHx: Anxiety Disorder; Asthma; Depression; IBS; - PSHx: Endoscopy, Upper; Tonsillectomy; stomach surgery; - Social history: Smoking status: Patient uses tobacco products, heavy tobacco smoker. No barriers to communication noted, The patient speaks fluent [place], Speaks appropriately for age. - Family history: Not pertinent. - : The pt / caregiver states he / she is not on anticoagulants. Home medication list is obtained from the patient. - Exposure Risk Screening:: None identified. Screenin:53 Screening information is obtained from the patient. Fall risk: No risks identified. ka4 Assistance ADL's: requires no assistance with activities of daily living. Abuse/DV Screen: The patient / caregiver reports he/she is: not in a situation that causes fear, pain or injury. Nutritional screening: No deficits noted. Advance Directives: There is no active DNR order. home support is adequate. Assessment: 01:00 General: Appears in no apparent distress, Behavior is anxious, cooperative. Pain: ld5 Location: right lower quadrant and left lower quadrant Pain currently is 1 out of 10 on a pain scale. Neurological: Level of Consciousness is awake, obeys commands. Respiratory: Airway is patent Respiratory effort is even, unlabored. GI: Abdomen is non- distended Bowel sounds present X 4 quads. Abd is soft and non tender X 4 quads. : Denies vaginal bleeding. 01:47 General: Appears in no apparent distress, comfortable, Behavior is anxious, ka4 cooperative. Respiratory: Airway is patent Respiratory effort is even, unlabored, Respiratory pattern is regular, symmetrical. Derm: Skin is pink, warm & dry. 02:23 General: Appears in no apparent distress, Behavior is cooperative. Pain: Denies pain. ld5 Neurological: Level of Consciousness is awake, obeys commands. Respiratory: Airway is patent Respiratory effort is even, unlabored. Vital Signs: 00:38 BP 125 / 86; Pulse 79; Resp 18; Temp 98.8(O); Pulse Ox 98% on R/A; Weight 56.7 kg (R); [facility] Height 5 ft. 5 in. (165.10 cm) (R); Pain 07/18; 02:23 BP 121 / 71; Pulse 71; Resp 16; Temp 98.1; Pulse Ox 100% on R/A; ld5 00:38 Body Mass Index 20.80 (56.70 kg, 165.10 cm) [facility] Vitals: 00:38 Log In Time: July 09, 2016 at 00:38. [facility] ED Course: 00:34 Patient visited by Altagracia Pollock. gjb 00:34 Patient moved to Waiting gjb 00:37 Triage Initiated jmb 00:39 Anshu Rodriguez PA is PHCP. mo1 00:39 Zaki Licona DO is Attending Physician. mo1 00:41 Patient moved to I4 / M4 jmb 00:53 Patient visited by Marija Medrano LPN. ka4 00:53 The patient / caregiver is instructed regarding the plan of care and ED course. ka4 00:53 Urine Culture Sent. ka4 00:53 UA Sent. ka4 01:00 Patient visited by Anshu Rodriguez PA. mo1 01:46 Wet Prep Sent. ka4 01:46 GC & Chlamydia Amplification Sent. ka4 01:48 Patient visited by Marija Medrano LPN. ka4 01:48 Assist provider with pelvic exam: Set up pelvic tray. Specimens sent to lab. Performed ka4 by Anshu ZELAYA Patient tolerated well. 01:50 US 1st trimester Returned. EDMS 02:23 No IV's were initiated during this patient's visit. ld5 02:25 Patient visited by Pao Deras RN. ld5 02:32 [facility] Payment Agreement was scanned into lettrs and attached to record. hs2 02:36 Patient name changed from Moy\S\\S\Angilello\S\ to Moy\S\ \S\Angilello. EDMS 08:52 T-Sheet-- Draft Copy was scanned into lettrs and attached to record. [facility] Point of Care Testing: Urine : 00:53 hCG Reading: Positive; Control Reading: Positive; ka4 Ranges: Order Results: Lab Order: UA; SPEC'M 07/09/16 00:51 Test: APPEARANCE, URINE; Value: CLEAR; Range: CLEAR; Status: F Test: COLOR, URINE; Value: YELLOW; Range: YELLOW; Status: F Test: PH,URINE; Value: 6.0; Range: 5.0-9.0; Units: UNITS; Status: F Test: SPECIFIC GRAVITY URINE AUTO; Value: 1.020; Range: 1.002-1.035; Status: F Test: PROTEIN, URINE AUTO; Value: NEGATIVE; Range: NEGATIVE; Units: mg/dL; Status: F Test: GLUCOSE, URINE (UA) AUTO; Value: NEGATIVE; Range: NEGATIVE; Units: mg/dL; Status: F Test: KETONE, URINE AUTO; Value: 1+; Range: NEGATIVE; Abnormal: Above high normal; Units: mg/dL; Status: F Test: UROBILINOGEN, URINE AUTO; Value: 0.2; Range: 0.0-2.0; Units: mg/dL; Status: F Test: BILIRUBIN, URINE AUTO; Value: NEGATIVE; Range: NEGATIVE; Status: F Test: NITRITE, URINE AUTO; Value: NEGATIVE; Range: NEGATIVE; Status: F Test: LEUKOCYTE ESTERASE, URINE AUTO; Value: NEGATIVE; Range: NEGATIVE; Status: F Test: BLOOD, URINE BLOOD; Value: NEGATIVE; Range: NEGATIVE; Status: F Test: WBC, URINE AUTO; Value: 1; Range: 0-3; Units: /HPF; Status: F Test: RBC, URINE AUTO; Value: 1; Range: 0-3; Units: /HPF; Status: F Test: BACTERIA, URINE AUTO; Value: 1+; Range: NEGATIVE; Abnormal: Above high normal; Status: F Test: SQUAMOUS EPITHELIAL CELL UR AU; Value: 1; Range: 0-6; Units: /HPF; Status: F Test: MUCUS, URINE; Value: SMALL; Range: NEGATIVE; Status: F Test: HYALINE CAST, URINE AUTO; Value: 0; Range: 0-1; Units: /LPF; Status: F Lab Order: Urine Culture; SPEC'M 07/09/16 00:51 Test: URINE CULTURE; Value: URINE CULTURE RESULT NO GROWTH; Status: F Lab Order: Complete Blood Count; SPEC'M 07/09/16 01:12 Test: WHITE BLOOD COUNT; Value: 7.2; Range: 4.0-10.0; Units: K/mm3; Status: F Test: RED BLOOD COUNT; Value: 4.15; Range: 4.00-5.40; Units: M/mm3; Status: F Test: HEMOGLOBIN; Value: 13.1; Range: 12.0-16.0; Units: g/dl; Status: F Test: HEMATOCRIT; Value: 36.8; Range: 36.0-47.0; Units: %; Status: F Test: MEAN CORPUSCULAR VOLUME; Value: 88.7; Range: 80.0-96.0; Units: fl; Status: F Test: MEAN CORPUSCULAR HEMOGLOBIN; Value: 31.5; Range: 27.0-33.0; Units: pg; Status: F Test: MEAN CORPUSCULAR HGB CONC; Value: 35.5; Range: 32.0-36.5; Units: g/dl; Status: F Test: RED CELL DISTRIBUTION WIDTH; Value: 11.8; Range: 11.5-14.5; Units: %; Status: F Test: PLATELET COUNT, AUTOMATED; Value: 207; Range: 150-450; Units: k/mm3; Status: F Lab Order: Hcg, Serum Quantitative; SPEC'M 07/09/16 01:12 Test: HCG, SERUM QUANTITATIVE; Value: 4344; Units: MIU/ML; Status: F Test Note: ; GESTATIONAL AGE APPROXIMATE HCG RANGE (MIU/ML) 0.2-1 WEEK 5-50 1-2 WEEKS 50-500 2-3 WEEKS 100-5,000 3-4 WEEKS 500-10,000 4-5 WEEKS 1,000-50,000 5-6 WEEKS 10,000-100,000 6-8 WEEKS 15,000-200,000 2-3 MONTHS 10,000-100,000 NON FEMALES LESS THAN 3.0 Patient samples may contain human heterophilic antibodies that could react with immunoassays to give falsely elevated or depressed results. This assay has been designed to minimize interference from heterophilic antibodies. Elevated hCG levels have also been associated with trophoblastic disease and nontrophoblastic neoplasms. The possibility of having these diseases should be considered before a diagnosis of is made. This test is not intended for use as a surrogate marker for aiding in the diagnosis or monitoring the treatment of cancer patients. Siemens Greysox methodology. Lab Order: Type & Screen; SPEC'M 07/09/16 01:12 Test: BLOOD TYPE; Value: A POS; Status: F Test: AB SCREEN (INDIRECT CHAR)GEL; Value: NEGATIVE; Status: F Lab Order: BMP; SPEC'M 07/09/16 01:12 Test: GLUCOSE, FASTING; Value: 90; Range: 70-105; Units: MG/DL; Status: F Test: BLOOD UREA NITROGEN; Value: 8; Range: 7-18; Units: MG/DL; Status: F Test: CREATININE FOR GFR; Value: 0.42; Range: 0.55-1.02; Abnormal: Below low normal; Units: MG/DL; Status: F Test: GLOMERULAR FILTRATION RATE; Value: > 60.0; Range: >60; Status: F Test: SODIUM LEVEL; Value: 140; Range: 136-145; Units: MEQ/L; Status: F Test: POTASSIUM SERUM; Value: 4.1; Range: 3.5-5.1; Units: MEQ/L; Status: F Test: CHLORIDE LEVEL; Value: 105; Range: 98-107; Units: MEQ/L; Status: F Test: CARBON DIOXIDE LEVEL; Value: 25; Range: 21-32; Units: MEQ/L; Status: F Test: ANION GAP; Value: 10; Range: 8-16; Units: MEQ/L; Status: F Test: CALCIUM LEVEL; Value: 8.7; Range: 8.5-10.1; Units: MG/DL; Status: F Test Note: ; Units are mL/min/1.73 m2 Chronic Kidney Disease Staging per NKF: Stage I & II GFR >=60 Normal to Mildly Decreased Stage III GFR 30-59 Moderately Decreased Stage IV GFR 15-29 Severely Decreased Stage V GFR <15 Very Little GFR Left ESRD GFR <15 on ONLINE ADVERTISING DIRECTOR Lab Order: GC & Chlamydia Amplification; SPEC'M 07/09/16 01:12 Test: CHLAMYDIA DNA AMPLIFICATION; Value: NEGATIVE; Range: NEGATIVE; Status: F Test: GC DNA AMPLIFICATION; Value: NEGATIVE; Range: NEGATIVE; Status: F Lab Order: Wet Prep; SPEC'M 07/09/16 01:12 Test: WET PREP; Value: WET PREP RESULT; Status: F Test: WET PREP; Value: MANY EPITHELIAL CELLS PRESENT; Status: F Test: WET PREP; Value: MANY LONG RODS PRESENT; Status: F Test: WET PREP; Value: MODERATE WBC; Status: F Radiology Order: US 1st trimester Test: US 1st trimester REASON FOR EXAMINATION: 5wks preg, pelvic pain; ; CLINICAL HISTORY: Cramps.; TECHNIQUE: Transabdominal and endovaginal ultrasound of the pelvis was performed.; FINDINGS:; A pole is identified with crown-rump length of 0.4 cm, which corresponds to a gestational age o; f 6 weeks and 4 days. A yolk sac is noted.; heart motion is demonstrated, with a rate of 61 beats per minute.; [place] is estimated at 02/26/17.; Both ovaries are identified. Right ovarian cyst is seen There is no adnexal mass or pelvic fluid col; lection.; IMPRESSION:; Single live IUP dated 6 w 4 d.; ; Outcome: 02:20 Discharge ordered by Provider. mo1 02:23 Discharge Assessment: Patient awake, alert and oriented x 3. No cognitive and/or ld5 functional deficits noted. Patient verbalized understanding of disposition instructions. patient administered narcotics - no. The following High Risk Discharge criteria are identified: None. Discharged to home ambulatory, with significant other. Condition: stable. Discharge instructions given to patient, significant other, Instructed on discharge instructions, follow up and referral plans. Demonstrated understanding of instructions, Pt was receptive of discharge instructions/ teaching. Ultrasound Study completed. Property :Personal belongings accompany Pt. 02:25 Patient left the ED. ld5 Signatures: Dispatcher [employer] EDPao Nunez,RN RN ld5 Anshu Rodriguez PA PA mo1 Karsten ArandaRN RN Marija Finley LPN LPN ka4 Beck, Gabriela gjb Stanton, Hillary, Reg Reg hs2 Misael Emanicorrie briggs Chart Complete MTDD
== END 2016-07-09 02:25 | disposition home or self-care (01) ==
LOC: M ED 00:33
DX: O26.891 Other specified pregnancy related conditions, first trimester (principal); O99.340 Other mental disorders complicating pregnancy, unspecified trimester; O99.511 Diseases of the respiratory system complicating pregnancy, first trimester; O99.611 Diseases of the digestive system complicating pregnancy, first trimester; O99.331 Smoking (tobacco) complicating pregnancy, first trimester; O99.89 Other specified diseases and conditions complicating pregnancy, childbirth and the puerperium; F32.9 Major depressive disorder, single episode, unspecified; Z91.030 Bee allergy status; Z88.8 Allergy status to other drugs, medicaments and biological substances